=== PATIENT | female | born 2005 | race Caucasian/White ===

== ENCOUNTER → 2024-05-25 09:48 | Outpatient (REF) | payer OTHER, SELFPAY | LOC: HWRAD 09:48 | PROVIDERS: ATTENDING PHYSICIAN Family Medicine | DX: R22.9 Localized swelling, mass and lump, unspecified (principal) | CPT/HCPCS: 73590; 73600 ==

== ENCOUNTER → 2024-06-09 07:50 | Outpatient (REF) | payer OTHER, SELFPAY | LOC: HWRAD 07:50 | PROVIDERS: ATTENDING PHYSICIAN Family Medicine | DX: R22.9 Localized swelling, mass and lump, unspecified (principal) | CPT/HCPCS: 76882 ==

== ENCOUNTER → 2025-02-18 10:20 | Outpatient (REF) | payer OTHER, SELFPAY ==
[2025-02-18 22:19] LABS: Hepatitis B Surface Antibody Positive
== END ==
LOC: REG 10:20
PROVIDERS: ATTENDING PHYSICIAN Nurse Practitioner Family
DX: Z23 Encounter for immunization (principal)
CPT/HCPCS: 86706